=== PATIENT | female | born 1965 | race Two or more races ===

== ENCOUNTER 2017-05-21 01:35 | Emergency (ER) | payer OTHER ==
[~2017-05-21] VITALS: Ht 162.6 cm; Wt 54.0 kg
[~2017-05-21 01:35] MED LIST: FERR-55 PO; LORA10TA PO; METF1000 PO
[2017-05-21 01:42] VITALS: Ht 162.6 cm; Wt 54.0 kg
[2017-05-21] MEDS ORDERED: FUROSEMIDE 40 MG INJ IV STA (02:52)
[2017-05-21] MEDS ORDERED: morphine 2 MG INJ IV STA (02:52)
[2017-05-21] MEDS ORDERED: ONDANSETRON 4 MG INJ IV STA (02:52)
--- NOTE | 2017-05-21 03:47 | RADRPT ---
PROCEDURE: XR Chest. CLINICAL INDICATION: Chest pain TECHNIQUE: AP Portable chest. COMPARISON: No pertinent prior examinations were submitted for comparison. FINDINGS: There is mild cardiomegaly. The lungs are clear. The osseous structures are unremarkable. IMPRESSION: No acute findings. RPTAT: HIKT .Rory East MD, Date Time Electronically viewed and signed by .Rory East MD, on 05/21/2017 03:47 .T/
[2017-05-21] MEDS ORDERED: GLIM2TAB PO (04:01)
--- NOTE | 2017-05-21 04:08 | RADRPT ---
PROCEDURE: Noncontrast CT Head. CLINICAL INDICATION: Pain. TECHNIQUE: Noncontrast CT of the head was obtained. The administered radiation dose was CTDI vol = 45 mGy, DLP = 720 mGy-cm. COMPARISON: No pertinent prior examinations were submitted for comparison. FINDINGS: The ventricles and cortical sulci are mildly enlarged. There is mild decreased attenuation within t he periventricular and subcortical white matter compatible with chronic microvascular changes. There is no acute intracranial hemorrhage or extra-axial fluid collection. There is no mass effect . No midline shift is identified. There is no loss of wei-white differentiation to suggest acute in farction. The orbits are within normal limits. The paranasal sinuses are well aerated. No destructive osseous lesion is identified. IMPRESSION: No acute findings. Mild diffuse parenchymal volume loss and chronic microvascular changes. RPTAT: HIKT .Rory East MD, MD Date Time Electronically viewed and signed by .Rory East MD, on 05/21/2017 04:08 .T/
[2017-05-21 04:30] VITALS: TEMP 98.6
[2017-05-21] MEDS ORDERED: LORAZEPAM 2 MG INJ IV ONE (04:30)
[2017-05-21 04:48] LABS: ALANINE AMINOTRANSFERASE 42 IU/L (13-69); ALBUMIN 4.4 g/dl (3.3-4.9); ALBUMIN/GLOBULIN RATIO 1.41; ALKALINE PHOSPHATASE 150 IU/L (42-121); ANION GAP 22 (8-16); ASPARTATE AMINO TRANSFERASE 27 IU/L (15-46); BILIRUBIN,INDIRECT 0.2 mg/dl (0-1.1); BILIRUBIN,TOTAL 0.2 mg/dl (0.2-1.3); BLOOD UREA NITROGEN 12 mg/dl (7-20); CALCIUM 9.6 mg/dl (8.4-10.2); CARBON DIOXIDE 26 mmol/L (21-31); CHLORIDE 101 mmol/L (97-110); CREATININE 0.52 mg/dl (0.44-1.00); GLUCOSE 181 mg/dl (70-220); POTASSIUM 3.8 mmol/L (3.5-5.1); SODIUM 145 mmol/L (135-144); TOTAL PROTEIN 7.5 g/dl (6.1-8.1)
[2017-05-21 04:59] LABS: BASOPHIL # 0.1 10^3/ul (0.0-0.1); EOSINOPHILS # 0.2 10^3/ul (0.0-0.5); EOSINOPHILS % 2.5 % (0.0-7.0); HEMATOCRIT 38.5 % (37.0-47.0); HEMOGLOBIN 11.5 g/dl (12.0-16.0); LYMPHOCYTES # 3.6 10^3/ul (0.8-2.9); LYMPHOCYTES % 45.2 % (15.0-51.0); MEAN CORPUSCULAR HEMOGLOBIN 18.1 pg (29.0-33.0); MEAN CORPUSCULAR HGB CONC 29.9 g/dl (32.0-37.0); MEAN CORPUSCULAR VOLUME 60.6 fl (82.0-101.0); MEAN PLATELET VOLUME 10.7 fl (7.4-10.4); MONOCYTE # 0.5 10^3/ul (0.3-0.9); NEUTROPHIL # 3.5 10^3/ul (1.6-7.5); NEUTROPHILS % 44.7 % (39.0-77.0); PLATELET COUNT 274 10^3/UL (140-415); RED BLOOD COUNT 6.35 10^6/ul (4.20-5.40); WHITE BLOOD COUNT 7.9 10^3/ul (4.8-10.8)
[2017-05-21 05:00] LABS: B-TYPE NATRIURETIC PEPTIDE 23 PG/ML (0-125)
[2017-05-21 05:05] LABS: TROPONIN-I < 0.012 ng/ml (0.00-0.12)
--- NOTE | 2017-05-21 05:18 | ERD ---
ER Documentation Chief Complaint Date/Time DATE: 05/21/17 TIME: 05:16 Chief Complaint chest pain w/ sob x 2 days, w/ htn. jaw numbness, headache HPI 52-year-old female such as a chest pain for the past 2 days. She also has some jaw numbness and a headache earlier today. Denies any fevers or chills. Chest pain is since resolved. When she did have chest pain, it was pressure-like and right-sided with no exacerbating or alleviating factors. Mild shortness of breath when she had chest pain. Again she has not had chest pain for over 16 hours. Denies any fevers or chills. Jaw pain is mild in intensity. Which is related to poor dentition. No other current issues. ROS All systems reviewed and are negative except as per history of present illness. Medications Home Meds Reported Medications Glimepiride* (Glimepiride*) 2 Mg Tablet, 2 MG PO WITH BREAKFAST, TAB 05/21/17 Ferrous Sulfate* (Ferrous Sulfate*) 325 Mg Tablet, 325 MG PO BID 08/13/11 Loratadine (Loratadine) 10 Mg Tablet, 10 MG PO DAILY 08/13/11 Metformin Hcl* (Metformin Hcl*) 1,000 Mg Tablet, 1000 MG PO BID 08/13/11 Allergies Allergies: Coded Allergies: No Known Allergies (Unverified Allergy, Unknown, 05/21/17) PMhx/Soc History of Surgery: Yes (HERNIA REPAIR) Anesthesia Reaction: No Hx Neurological Disorder: No Hx Respiratory Disorders: No Hx Cardiac Disorders: No Hx Psychiatric Problems: No Hx Miscellaneous Medical Probl: No Hx Alcohol Use: No Hx Substance Use: No Hx Tobacco Use: No Smoking Status: Never smoker Physical Exam Vitals Vital Signs Date Time Temp Pulse Resp B/P Pulse Ox O2 Delivery O2 Flow Rate FiO2 05/21/17 03:36 98.3 80 20 159/72 100 Room Air 05/21/17 02:58 Nasal Cannula 2 05/21/17 01:42 98.3 84 20 200/79 100 Physical Exam Const: [] Head: Atraumatic Eyes: Normal Conjunctiva ENT: Normal External Ears, Nose and Mouth. Neck: Full range of motion..~ No meningismus. Resp: Clear to auscultation bilaterally Cardio: Regular rate and rhythm, no murmurs Abd: Soft, non tender, non distended. Normal bowel sounds Skin: No petechiae or rashes Back: No midline or flank tenderness Ext: No cyanosis, or edema Neur: Awake and alert Psych: Normal Mood and Affect Result Diagram: 05/21/174 05/21/17 0324 Results 24 hrs Laboratory Tests Test 05/21/17 03:24 White Blood Count 7.910^3/ul Red Blood Count 6.3510^6/ul Hemoglobin 11.5g/dl Hematocrit 38.5% Mean Corpuscular Volume 60.6fl Mean Corpuscular Hemoglobin 18.1pg Mean Corpuscular Hemoglobin Concent 29.9g/dl Red Cell Distribution Width 17.0% Platelet Count 57130^3/UL Mean Platelet Volume 10.7fl Neutrophils % 44.7% Lymphocytes % 45.2% Monocytes % 6.0% Eosinophils % 2.5% Basophils % 1.0% Nucleated Red Blood Cells % 0.0/100WBC Neutrophils # 3.510^3/ul Lymphocytes # 3.610^3/ul Monocytes # 0.510^3/ul Eosinophils # 0.210^3/ul Basophils # 0.110^3/ul Nucleated Red Blood Cells # 0.010^3/ul Sodium Level 145mmol/L Potassium Level 3.8mmol/L Chloride Level 101mmol/L Carbon Dioxide Level 26mmol/L Anion Gap 22 Blood Urea Nitrogen 12mg/dl Creatinine 0.52mg/dl Glucose Level 181mg/dl Calcium Level 9.6mg/dl Total Bilirubin 0.2mg/dl Direct Bilirubin 0.00mg/dl Indirect Bilirubin 0.2mg/dl Aspartate Amino Transf (AST/SGOT) 27IU/L Alanine Aminotransferase (ALT/SGPT) 42IU/L Alkaline Phosphatase 150IU/L Troponin I < 0.012ng/ml B-Type Natriuretic Peptide 23PG/ML Total Protein 7.5g/dl Albumin 4.4g/dl Globulin 3.10g/dl Albumin/Globulin Ratio 1.41 Current Medications Medications (Trade) Dose Ordered Sig/Wong Route PRN Reason Start Time Stop Time Status Last Admin Dose Admin Furosemide (Lasix) 40 mg ONCE STAT IV 05/21/17 02:52 05/21/17 02:54 DC 05/21/17 03:33 Morphine Sulfate (morphine) 2 mg ONCE STAT IV 05/21/17 02:52 05/21/17 02:55 DC 05/21/17 03:33 Ondansetron HCl (Zofran Inj) 4 mg ONCE STAT IV 05/21/17 02:52 05/21/17 02:55 DC 05/21/17 03:32 Lorazepam (Ativan) 1 mg ONCE ONCE IV 05/21/17 04:30 05/21/17 04:31 DC 05/21/17 04:50 Procedures/MDM EKG: Rate/Rhythm: Normal Sinus Rhythm QRS, ST, T-waves: No changes consistent w/ acute ischemia Impression: No evidence of ischemia or arrhythmia Chest X-ray 1V Interpreted by me: Soft Tissue: No acute abnormalities Bones: No acute abnormalities Mediastinum/Cardiac Silhouette/Lungs: No acute abnormalities Patient's thoracic symptoms have stabilized while in the department and are stable for outpatient follow up. Exam and work up not consistent w/ ischemia, arrhythmia, PE or dissection. Patient be discharged home to follow with PCP. Return immediately for any return of chest pain. Patient was given a short course of clindamycin for poor dentition and likely dental infection. Follow-up with dentist as outpatient. Departure Diagnosis: Primary Impression: Chest pain Chest pain type: unspecified Qualified Code: R07.9 - Chest pain, unspecified type Additional Impression: Dental infection Condition: Stable BABATUNDE CHANDLER May 21, 2017 05:18
[2017-05-21 05:24] LABS: INR 0.87; PROTIME 11.8 Sec (12.2-14.2); PT RATIO 0.9
[2017-05-21 05:25] LABS: PARTIAL THROMBOPLASTIN TIME 28.2 Sec (25.0-35.0)
[2017-05-21] MEDS ORDERED: CLIN-73 PO (05:27)
[2017-05-21] MEDS ORDERED: TRAM50TA2 PO (05:27)
[2017-05-21 06:01] VITALS: BP 147/69; PULSE 74; RESP 20
== END 2017-05-21 06:00 | disposition home or self-care (01) ==
LOC: E/R 01:35
DX: R07.9 Chest pain, unspecified (principal); K04.7 Periapical abscess without sinus; R06.02 Shortness of breath; R51 Headache; Z79.4 Long term (current) use of insulin
CPT/HCPCS: 36415; 70450; 71010; 80053; 83880; 84484; 85025; 85610; 85730; 93005; 96374; 96375; J1940; J2060; J2270; J2405; Z7502

== ENCOUNTER 2017-07-07 20:43 | Emergency (ER) | payer SELFPAY ==
[~2017-07-07] VITALS: Ht 154.9 cm; Wt 53.5 kg
[~2017-07-07 20:43] MED LIST changes: +CLIN-73 PO; +GLIM2TAB PO; +TRAM50TA2 PO
[2017-07-07 20:46] VITALS: Ht 154.9 cm; Wt 53.5 kg
== END 2017-07-07 20:50 | disposition left against medical advice (07) ==
LOC: E/R 20:43
DX: Z53.21 Procedure and treatment not carried out due to patient leaving prior to being seen by health care provider (principal)

== ENCOUNTER 2018-03-26 20:57 | Emergency (ER) | END 2018-03-26 23:25 | disposition left against medical advice (07) ==